=== PATIENT | male | born 1980 | race African-American/Black ===

== ENCOUNTER 2024-01-30 13:14 | Outpatient (AMB) | payer BC, SELFPAY ==
--- NOTE | 2024-01-30 13:15 | MHC.OFFVIS ---
Vital Signs 01/30/24 13:22 Height 5 ft 11 in Weight 336 lb 6 oz BMI 46.9 BP 137/85 Blood Pressure Location Rt brachial Position Sitting Pulse 79 Pulse Source Pulse Oximeter Pulse Oximetry (%) 97 Oxygen Delivery Method Room Air Intake Visit Reasons: Chronic Pain Intake Note: Pain today 11/04 Rate Reviewer Required: No Accompanied by: Self / Same As Patient Allergies No Known Allergies Allergy (Verified 01/30/24 13:22) HPI HPI Chronic Pain: Details: Patient is a 43 years old male with history of chronic fatigue, male gynecomastia, chronic pain syndrome, chronic abdominal pain, morbid obesity, bipolar disorder, and polyarthralgia presents today for initial evaluation for chronic pain syndrome. Patient reports he was diagnosed with fibromyalgia and amplified chronic pain syndrome at [facility] one year ago but had no follow-up since then. Patient also reports multiple and extensive GI workup for chronic abdominal pain with no acute findings. Patient presents today to confirm fibromyalgia and chronic pain syndrome. He is not interested in interventional treatments and requests referral to Rheumatology provider at [facility]. Pain affects his daily activities functioning, mobility, mood, sleep, social interactions and quality of life. Denies any fever or chills, weight loss, groin pain, weakness, bladder or bowel dysfunction or saddle anesthesia. Ambulates with slow, antalgic gait. Uses cane with transfers and ambulation. Location: Widespread body pain, chronic abdominal pain Duration: Chronic pain for many years Characteristics of symptom or complaint: Aching, throbbing, stabbing, cramping, sharp, sore, tiring, heavy Aggravating or associated factors: Eating, stress, any movement, cold weather, walking, bending, standing Relieving factors: Lyrica, omeprazole, marijuana for sleep and pain, rest Treatment: GI work up, PT, acupuncture FOR[facility], [facility] Medical History (Updated 02/01/24 @ 21:32 by BRIANA Allen) Fibromyalgia Fatigue Chronic pain Gynecomastia, male Social History (Updated 02/01/24 @ 21:33 by BRIANA Allen) Household Members: Spouse Alcohol intake: current Alcohol type: hard liquor Patient Tobacco Use Status: Never used Tobacco Substance Use Type: Marijuana Current occupational status: unemployed Review of Systems Const All systems reviewed & are unremarkable except as noted in HPI and below Physical Exam Vital Signs: Last Vital Signs Pulse 79 01/30/24 13:22 BP 137/85 01/30/24 13:22 Pulse Ox 97 01/30/24 13:22 Oxygen Delivery Method Room Air 01/30/24 13:22 BMI result Body Mass Index 46.9 General: Appears afebrile. No acute distress. Morbidly obese. Alert and oriented. Mood and affect appropriate. Follows and participates in conversation appropriately. Respiratory effort is unlabored. No cough. Able to transition from sit to stand unassisted. Uses cane with ambulation. Unable to perform lumbar ROM due to pain. Multiple widespread TTPs bilaterally, including upper and lower extremities. Results Reviewed Results Reviewed: And results are available for review today. Assessment & Plan Assessment & Plan (1) Chronic pain syndrome: Code(s): G89.4 - Chronic pain syndrome Category: Medical (2) Fibromyalgia: Code(s): M79.7 - Fibromyalgia Category: Medical (3) Polyarthralgia: Code(s): M25.50 - Pain in unspecified joint Category: Medical (4) Morbid obesity with BMI of 45.0-49.9, adult: Code(s): E66.01 - Morbid (severe) obesity due to excess calories; Z68.42 - Body mass index [BMI] 45.0-49.9, adult Category: Medical Plan Discussed management of fibromyalgia with patient. This is a noninflammatory, non-autoimmune central afferent processing disorder leading to a diffuse pain syndrome. Recommend daily physical activity, sleep hygiene, adequate hydration, well balance diet and weight loss, recommend Cognitive Behavioral Therapy(CBT) for sleep and coping with fibromyalgia with patient's current psychotherapist. Patient is currently on pregabalin 300 BID. He also takes marijuana for sleep and pain. Jennifer Gaming., Emelyn Yuan, Anthony Nettles, Naresh Cole, Zoë Ku, & ?Jennifer Perez (2017). Effectiveness of Therapeutic Exercise in Fibromyalgia Syndrome: A Systematic Review and [place]-Analysis of Randomized Clinical Trials. [employer], 2017, [id number]. https://doi.[email or web address] Patient is not interested in interventional treatments for chronic abdominal pain and arthritic pain head to toe and requests referral to Rheumatology provider at [facility]. All questions and concerns have been answered. Patient encouraged to follow-up with our office if he is interested in interventional treatments to address his chronic pain generators. Follow-up as needed. Orders: Referrals Rheumatology Referral G89.4 - Chronic pain syndrome, M25.50 - Pain in unspecified joint, M79.7 - Fibromyalgia Coding Level of Care Code New Pt Level 4 (97021) Diagnoses Chronic pain syndrome G89.4 Fibromyalgia M79.7 Polyarthralgia M25.50 Morbid obesity with BMI of 45.0-49.9, adult E66.01; Z68.42
[2024-01-30 13:22] VITALS: BP 137/85; PULSE 79; O2SAT 97; BMI 46.9
== END 2024-01-30 13:50 | disposition home or self-care (01) ==
PROVIDERS: PCP Family Medicine; Visit Provider Nurse Practitioner Family
DX: G89.4 Chronic pain syndrome (principal); M79.7 Fibromyalgia; M25.50 Pain in unspecified joint; E66.01 Morbid (severe) obesity due to excess calories; Z68.42 Body mass index [BMI] 45.0-49.9, adult
CPT/HCPCS: 99204

== ENCOUNTER → 2024-01-30 13:14 | Outpatient (BNVA) | payer BC, SELFPAY | PROVIDERS: PCP Family Medicine; Visit Provider Nurse Practitioner Family ==

== ENCOUNTER 2024-04-08 23:49 | Emergency (ER) | payer BC, SELFPAY ==
[2024-04-09 00:25] VITALS: BP 137/86; PULSE 80; RESP 20; TEMP 37.1; O2SAT 99; BMI 46.3
[2024-04-09 03:10] VITALS: BP 123/77; PULSE 84; RESP 16; TEMP 36.8; O2SAT 99
--- NOTE | 2024-04-09 03:17 | ED_ITS ---
HPI - Eye Problem General Chief complaint: Eye Problems Stated complaint: left eye pain Time Seen by Provider: 04/09/24 02:53 Source: patient Mode of arrival: ambulatory Limitations: no limitations History of Present Illness ED Provider: HPI Narrative: Patient complaining of pain in the left eye for last 1 week with slight redness of the sclera does not remember any foreign body but feel irritation of the left corner of the eye no vision changes no discharge from the eyes no history of glaucoma Related Data Home Medications ?Medication ?Instructions ?Recorded ?Confirmed clonidine HCl 0.2 mg tablet 0.2 mg PO DAILY 01/30/24 dextroamphetamine-amphetamine 5 mg 1 tab PO DAILY 01/30/24 tablet hydroxyzine HCl 25 mg tablet 25 mg PO DAILY 01/30/24 lamotrigine 100 mg tablet 100 mg PO DAILY 01/30/24 lamotrigine 150 mg tablet 150 mg PO DAILY 01/30/24 lisdexamfetamine 10 mg capsule 10 mg PO BID 01/30/24 pregabalin 300 mg capsule 300 mg PO BID 01/30/24 triamterene 37.5 1 cap PO DAILY 01/30/24 mg-hydrochlorothiazide 25 mg capsule Previous Rx's ?Medication ?Instructions ?Recorded tobramycin 0.3 % eye drops 2 drp ophthalmic (eye) Q4H #5 mL 04/09/24 Allergies Allergy/AdvReac Type Severity Reaction Status Date / Time No Known Allergies Allergy Verified 04/09/24 00:29 Review of Systems Review of Systems: Yes all other systems are reviewed and are negative PMFSH Past Medical History Medical History Fibromyalgia Fatigue Chronic pain Gynecomastia, male Social History Social History Household Members: Spouse Alcohol intake: current Alcohol type: hard liquor Patient Tobacco Use Status: Never used Tobacco Substance Use Type: Marijuana Advance Directives: No Advance Directives Information Provided: No Current occupational status: unemployed Physical Exam Vital Signs: Vital Signs: Last Vital Signs Temp 98.4 F 04/09/24 05:14 Pulse 86 04/09/24 05:14 Resp 16 04/09/24 05:14 BP 115/83 04/09/24 05:14 Pulse Ox 99 04/09/24 05:14 O2 Del Method Room Air 04/09/24 05:14 BMI result Body Mass Index 46.3 Appearance: Alert. Oriented X3. No acute distress. Eyes: PERRLA, No Nystagmus IOP 20 left eye fundus normal benign anterior chamber no foreign body seen fluorescein uptake was negative no abrasion visual patricia normal ENT: Pharynx normal. Oral Mucosa moist Neck: Normal inspection. Neck supple. CVS: Normal heart rate and rhythm. Pulses normal. Respiratory: No respiratory distress. Equal air entry bilateral, Abdomen: Soft and nontender. Bowel sounds are present, Skin: Skin warm and dry. Normal skin color. Normal skin turgor. Extremities: No lower extremity edema. No calf tenderness Neuro: Oriented X 3. Medications Administered Discontinued Medications Generic Name Dose Route Start Last Admin Trade Name Freq PRN Reason Stop Dose Admin Fluorescein Sodium 1 strip 04/09/24 03:22 04/09/24 03:28 Fluorescein Sodium Strip EYE-LEFT 04/09/24 03:23 1 strip ONCE ONE Administration Tetracaine HCl 1 drop 04/09/24 03:28 04/09/24 03:34 Tetracaine Hcl/Pf 0.5% Oph Isis 4 Ml Drops EYE-LEFT 04/09/24 03:29 1 drop ONCE ONE Administration Tobramycin Sulfate 2 drop 04/09/24 03:28 04/09/24 03:34 Tobramycin Sulfate 0.3% Isis Op 5 Ml Btl EYE-LEFT 04/09/24 03:29 2 drop ONCE ONE Administration Medical Decision Making Medical Decision Making [facility] Narrative: Patient with left eye pain with erythema of the conjunctiva likely conjunctivitis fluorescein uptake test was negative for abrasion anterior chamber was normal no foreign body was seen IOP was 20 will discharge patient home on tobramycin advised to follow up with PCP/cyber reverse engineer Discharge Plan Discharge Clinical Impression: Bacterial conjunctivitis Patient Disposition: Home, Self-Care Instructions: Conjunctivitis (ED) Additional Instructions: Likely have bacterial infection of the left eye No foreign body seen no abrasion seen Use tobramycin 2 drops every 4 hours till better Follow with cyber reverse engineer if not better or worsening of the pain Prescriptions: New tobramycin 0.3 % drops 2 drp ophthalmic (eye) Q4H Qty: 5 0RF No Action pregabalin 300 mg capsule 300 mg PO BID clonidine HCl 0.2 mg tablet 0.2 mg PO DAILY lamotrigine 150 mg tablet 150 mg PO DAILY lisdexamfetamine 10 mg capsule 10 mg PO BID lamotrigine 100 mg tablet 100 mg PO DAILY hydroxyzine HCl 25 mg tablet 25 mg PO DAILY dextroamphetamine-amphetamine 5 mg tablet 1 tab PO DAILY triamterene-hydrochlorothiazid 37.5-25 mg capsule 1 cap PO DAILY Interventions: ED Discharge Assessment Last Done: 04/09/24 05:14 Discharge Date/Time: 04/09/24 05:15 Print Language: Taiwanese
[2024-04-09] MEDS: Fluorescein Sodium STRIP 1 STRIP EYE-LEFT (03:28)
[2024-04-09] MEDS: Tobramycin Sulfate 0.3% Sol Op 5 ML BTL 2 DROP EYE-LEFT (03:34)
[2024-04-09] MEDS: Tetracaine HCl/PF 0.5% Oph Sol 4 ML DROPS 1 DROP EYE-LEFT (03:34)
[2024-04-09 04:39] VITALS: BP 115/83; PULSE 86; RESP 16; TEMP 36.9; O2SAT 99
[2024-04-09 05:14] VITALS: BP 115/83; PULSE 86; RESP 16; TEMP 36.9; O2SAT 99
== END 2024-04-09 05:15 | disposition home or self-care (01) ==
PROVIDERS: Emergency Provider Internal Medicine; PCP Family Medicine
DX: H10.89 Other conjunctivitis (principal); H57.89 Other specified disorders of eye and adnexa; Z79.899 Other long term (current) drug therapy
CPT/HCPCS: 99283